=== PATIENT | male | born 1995 | race Caucasian/White ===

== ENCOUNTER 2022-04-12 00:38 | Emergency (ER) | payer BC ==
[2022-04-12] MEDS ORDERED: ACETAMINOPHEN 500 MG TAB ONE (01:20)
[2022-04-12] MEDS ORDERED: LIDOCAINE VISCOUS 2% SOLN 15 ML UDC ONE (01:20)
--- NOTE | 2022-04-12 02:08 | EDPHYS ---
Physician Documentation [facility] Name: Gil Archibald Age: 26 yrs Sex: Male : 1995 Arrival Date: 04/12/2022 Time: 00:46 Bed 5 Private MD: Frankie Jhaveri HPI: 04/12 01:15 This 26 yrs old Male presents to ER via Ambulatory with complaints of Breathing cp Difficulty, Sore Throat. 01:15 The patient presents with sore throat, dysphagia. The patient describes throat pain as cp constant. Onset: The symptoms/episode began/occurred 4 day(s) ago. Associated signs and symptoms: Pertinent positives: dysphagia, shortness of breath Pertinent negatives diarrhea, fever, vomiting. Historical: - Allergies: 01:00 No Known Allergies; kd3 - Home Meds: 01:00 None [Active]; kd3 - PMHx: 01:00 Asthma; kd3 - PSHx: 01:00 None; kd3 - Immunization history:: Client reports having NOT received the Covid vaccine. - Social history:: Smoking status: Patient reports the use of cigarette tobacco products. ROS: 01:20 Constitutional: Negative for fever, poor PO intake. cp 01:20 Eyes: Negative for injury, pain, redness, and discharge. cp 01:20 ENT: Positive for difficulty swallowing, ear pain, sore throat, Negative for drainage from ear(s), difficulty handling secretions. 01:20 Cardiovascular: Negative for chest pain, palpitations. 01:20 Respiratory: Positive for shortness of breath, slight cough, Negative for wheezing. 01:20 Abdomen/GI: Negative for abdominal pain, vomiting, diarrhea, constipation. 01:20 Skin: Negative for rash. 01:20 Neuro: Negative for altered mental status, dizziness, headache, weakness. 01:20 All other systems are negative. Exam: 01:25 Head/Face: Normocephalic, atraumatic. cp 01:25 Constitutional: The patient appears in no acute distress, alert, awake, non-toxic, well developed, well nourished. 01:25 Eyes: Periorbital structures: appear normal, Conjunctiva: normal, no exudate, no injection, Lids and lashes: appear normal, bilaterally. 01:25 ENT: External ear(s): are unremarkable, Ear canal(s): are normal, clear, TM's: dullness, bilaterally, Nose: is normal, Mouth: Lips: moist, Oral mucosa: moist, Posterior pharynx: Airway: no evidence of obstruction, patent, Tonsils: bilaterally enlarged, with erythema, with exudate, Uvula: midline, erythema, that is moderate, Voice: is normal. 01:25 Neck: ROM/movement: is normal, is supple, no meningismus, no nuchal rigidity, Lymph nodes: lymphadenopathy is appreciated, anterior cervical nodes. 01:25 Chest/axilla: Inspection: normal. 01:25 Cardiovascular: Rate: tachycardic, Rhythm: regular. 01:25 Respiratory: the patient does not display signs of respiratory distress, Respirations: normal, no use of accessory muscles, no retractions, labored breathing, is not present, Breath sounds: are clear throughout, no decreased breath sounds, no stridor, no wheezing. 01:25 Abdomen/GI: Exam negative for discomfort, distension, guarding, Inspection: abdomen appears normal. 01:25 Neuro: Orientation: to person, place \T\ time. Mentation: is normal, Gait: is steady. Vital Signs: 00:58 BP 131 / 82; Pulse 114; Resp 20 S; Temp 99.6(O); Pulse Ox 97% on R/A; Weight 136.08 kg kd3 (R); Height 5 ft. 9 in. (175.26 cm) (R); Pain 8/10; 00:58 Body Mass Index 44.30 (136.08 kg, 175.26 cm) kd3 MDM: 00:51 Patient medically screened. [facility] 01:30 Differential diagnosis: group A strep tonsillitis, influenza, mononucleosis, cp peritonsillar abscess chlamydia pharyngitis, retropharyngeal abcess tonsillitis, uvulitis. 02:08 Data reviewed: vital signs, nurses notes, lab test result(s). cp 02:08 Counseling: I had a detailed discussion with the patient and/or guardian regarding: the cp historical points, exam findings, and any diagnostic results supporting the discharge/admit diagnosis, lab results, to return to the emergency department if symptoms worsen or persist or if there are any questions or concerns that arise at home. Response to treatment: the patient's symptoms have markedly improved after treatment, and as a result, I will discharge patient. ED course: Pain improved. Patient tolerating po meds, will discharge to home for continued monitoring. 04/12 01:13 Order name: Strep; Complete Time: 02:02 cp 04/12 01:57 Order name: Throat Culture EDMS Administered Medications: 01:26 Drug: Viscous Lidocaine Liquid (4 %) 5 ml Route: Mucous Membrane; kl 01:39 Follow up: Response: No adverse reaction; Marked relief of symptoms kl 01:26 Drug: Tylenol 1000 mg Route: PO; kl 01:39 Follow up: Response: No adverse reaction kl 02:23 Drug: Decadron (dexamethasone) 10 mg Route: PO; ll3 02:24 Follow up: Response: Medication administered at discharge. ll3 02:24 Drug: Clindamycin 300 mg Route: PO; ll3 02:24 Follow up: Response: Medication administered at discharge. ll3 Disposition Summary: 04/12/22 02:08 Discharge Ordered Location: Home cp Problem: new cp Symptoms: have improved cp Condition: Stable cp Diagnosis - Acute tonsillitis, unspecified cp Followup: cp - With: Private Physician - When: 2 - 3 days - Reason: Worsening of condition Discharge Instructions: - Discharge Summary Sheet cp - Tonsillitis cp Forms: - Medication Reconciliation Form cp - Thank You Letter cp - Antibiotic Education cp - Prescription Opioid Use cp Prescriptions: - Lidocaine Viscous - take 5 milliliter by ORAL route every 4-6 hours As needed; 1 bottle; Refills: cp 0, Product Selection Permitted - Clindamycin HCl 300 mg Oral Capsule - take 1 capsule by ORAL route every 6 hours for 10 days; 40 capsule; Refills: 0, cp Product Selection Permitted - Ibuprofen 800 mg Oral Tablet - take 1 tablet by ORAL route every 8 hours As needed take with food; 30 tablet; cp Refills: 0, Product Selection Permitted Signatures: Dispatcher [employer] EDMS Kendy Lobo RN RN kl Anderson, Corey, MD MD cha Page, Corey, PA PA cp Loubet, Lynsea, RN RN ll3 Melissa Paz RN RN kd3 Corrections: (The following items were deleted from the chart) 04/13 00:02 04/11 01:25 Constitutional: The patient appears in no acute distress, alert, awake, cp non-toxic, well developed, well nourished, cp 04/13 00:02 04/11 01:25 Head/Face: Normocephalic, atraumatic. cp cp 04/13 00:02 04/11 01:25 Eyes: Periorbital structures: appear normal, Conjunctiva: normal, no cp exudate, no injection, Lids and lashes: appear normal, bilaterally, cp 04/13 00:02 04/11 01:25 ENT: External ear(s): are unremarkable, Ear canal(s): are normal, clear, cp TM's: dullness, bilaterally, Nose: is normal, Mouth: Lips: moist, Oral mucosa: moist, Posterior pharynx: Airway: no evidence of obstruction, patent, Tonsils: bilaterally enlarged, with erythema, with exudate, Uvula: midline, erythema, that is moderate, Voice: is normal, cp 04/13 00:02 04/11 01:25 Neck: ROM/movement: is normal, is supple, no meningismus, no nuchal cp rigidity, Lymph nodes: lymphadenopathy is appreciated, anterior cervical nodes, cp 04/13 00:02 04/11 01:25 Chest/axilla: Inspection: normal, cp cp 04/13 00:02 12 01:25 Cardiovascular: Rate: tachycardic, Rhythm: regular, cp cp 04/13 00:02 12 01:25 Respiratory: the patient does not display signs of respiratory distress, cp Respirations: normal, no use of accessory muscles, no retractions, labored breathing, is not present, Breath sounds: are clear throughout, no decreased breath sounds, no stridor, no wheezing, cp 04/13 00:02 04/11 01:25 Abdomen/GI: Exam negative for discomfort, distension, guarding, Inspection: cp abdomen appears normal, cp 04/13 00:02 12 01:25 Neuro: Orientation: to person, place \T\ time. Mentation: is normal, Gait: is cp steady, cp
--- NOTE | 2022-04-12 02:08 | ER ---
Nurse's Notes [facility] Name: Gil Archibald Age: 26 yrs Sex: Male : 1995 Arrival Date: 04/12/2022 Time: 00:46 Bed 5 Private MD: Diagnosis: Acute tonsillitis, unspecified Presentation: 04/12 00:58 Chief complaint: Patient states: he has a really bad sore throat for several days with kd3 congestion and difficulty breathing. Coronavirus screen: congestion, difficulty breathing, sore throat, Client presents with at least one sign or symptom that may indicate coronavirus-19. Ebola Screen: No symptoms or risks identified at this time. Initial Sepsis Screen: Does the patient meet any 2 criteria? No. Patient's initial sepsis screen is negative. Does the patient have a suspected source of infection? No. Patient's initial sepsis screen is negative. Risk Assessment: Do you want to hurt yourself or someone else? Patient reports no desire to harm self or others. Onset of symptoms was April 08, 2022. 00:58 Method Of Arrival: Ambulatory kd3 00:58 Acuity: ADDISON 3 kd3 Historical: - Allergies: 01:00 No Known Allergies; kd3 - Home Meds: 01:00 None [Active]; kd3 - PMHx: 01:00 Asthma; kd3 - PSHx: 01:00 None; kd3 - Immunization history:: Client reports having NOT received the Covid vaccine. - Social history:: Smoking status: Patient reports the use of cigarette tobacco products. Screenin:24 Abuse screen: Denies threats or abuse. Denies injuries from another. Nutritional ll3 screening: No deficits noted. Tuberculosis screening: No symptoms or risk factors identified. Fall Risk None identified. Assessment: 01:39 General: Appears uncomfortable, Behavior is calm, cooperative. Pain: Complains of pain kl in throat Pain currently is 3 out of 10 on a pain scale. at worst was 10 out of 10 on a pain scale. Aggravated by eating, drinking. Neuro: No deficits noted. Cardiovascular: No deficits noted. Rhythm is regular. Respiratory: No deficits noted. Airway is patent Respiratory effort is even, unlabored, Breath sounds are clear bilaterally. Vital Signs: 00:58 BP 131 / 82; Pulse 114; Resp 20 S; Temp 99.6(O); Pulse Ox 97% on R/A; Weight 136.08 kg kd3 (R); Height 5 ft. 9 in. (175.26 cm) (R); Pain 8/10; 00:58 Body Mass Index 44.30 (136.08 kg, 175.26 cm) kd3 ED Course: 00:46 Patient arrived in ED. bp1 00:49 Frankie Flores PA is PHCP. cp 00:49 Frankie Jimenez MD is Attending Physician. cp 01:00 Triage completed. kd3 01:00 Arm band placed on Patient placed in an exam room, on a stretcher, on pulse oximetry. kd3 Family accompanied patient. 01:26 Strep Sent. kl 02:24 Patient has correct armband on for positive identification. Bed in low position. Call ll3 light in reach. Side rails up X 1. Adult w/ patient. 02:24 No provider procedures requiring assistance completed. Patient did not have IV access ll3 during this emergency room visit. Administered Medications: 01:26 Drug: Viscous Lidocaine Liquid (4 %) 5 ml Route: Mucous Membrane; kl 01:39 Follow up: Response: No adverse reaction; Marked relief of symptoms kl 01:26 Drug: Tylenol 1000 mg Route: PO; kl 01:39 Follow up: Response: No adverse reaction kl 02:23 Drug: Decadron (dexamethasone) 10 mg Route: PO; ll3 02:24 Follow up: Response: Medication administered at discharge. ll3 02:24 Drug: Clindamycin 300 mg Route: PO; ll3 02:24 Follow up: Response: Medication administered at discharge. ll3 Medication: 02:25 VIS not applicable for this client. ll3 Outcome: 02:08 Discharge ordered by . cp 02:24 Discharged to home ambulatory, with significant other. ll3 02:24 Condition: stable 02:24 Discharge instructions given to patient, significant other, Instructed on discharge instructions, follow up and referral plans. medication usage, Demonstrated understanding of instructions, follow-up care, medications, Prescriptions given X 3. 02:25 Patient left the ED. ll3 Signatures: Kendy Lobo RN RN kl Page, Corey, PA PA cp Pania[place], Brittany bp1 Loubet, Lynsea, RN RN 3 Melissa Paz RN RN 3
[2022-04-12] MEDS ORDERED: dexAMETHasone 4 MG TAB ONE (02:21)
[2022-04-12 09:53] VITALS: BP 131/82; TEMP 99.6; O2SAT 97
== END 2022-04-12 02:25 | disposition home or self-care (01) ==
LOC: ER 00:38
DX: J03.90 Acute tonsillitis, unspecified (principal); Z72.0 Tobacco use
CPT/HCPCS: 87070; 87081; 99284; J8540